=== PATIENT | female | born 1985 | race Caucasian/White ===

== ENCOUNTER 2016-10-14 18:01 | Emergency (ER) | payer MEDICAID ==
[~2016-10-14] VITALS: Ht 167.6 cm; Wt 64.9 kg
[2016-10-14 19:49] VITALS: BP 111/75
== END 2016-10-14 19:49 | disposition home or self-care (01) ==
LOC: ED 18:01
DX: S61.215A Laceration without foreign body of left ring finger without damage to nail, initial encounter (principal); W26.0XXA Contact with knife, initial encounter; Y93.89 Activity, other specified; Y92.89 Other specified places as the place of occurrence of the external cause; Y99.8 Other external cause status
CPT/HCPCS: 90715

== ENCOUNTER 2017-04-04 17:24 | Emergency (ER) | payer MEDICAID ==
[~2017-04-04] VITALS: Ht 160 cm; Wt 62.6 kg
[2017-04-04 17:57] VITALS: Ht 160 cm; Wt 62.6 kg
[2017-04-04 21:02] VITALS: BP 130/67
== END 2017-04-04 19:50 | disposition home or self-care (01) ==
LOC: ED 17:24
DX: J06.9 Acute upper respiratory infection, unspecified (principal); J01.90 Acute sinusitis, unspecified

== ENCOUNTER 2018-01-30 07:24 | Emergency (ER) | payer MEDICAID ==
[~2018-01-30] VITALS: Ht 154.9 cm; Wt 57.6 kg
[2018-01-30 07:29] VITALS: Ht 154.9 cm; Wt 57.6 kg
[2018-01-30 09:04] VITALS: BP 109/75
== END 2018-01-30 09:04 | disposition home or self-care (01) ==
LOC: ED 07:24
DX: M26.602 Left temporomandibular joint disorder, unspecified (principal); R68.84 Jaw pain; M54.2 Cervicalgia

== ENCOUNTER 2019-02-20 12:16 | Emergency (ER) | payer MEDICAID ==
[~2019-02-20] VITALS: Ht 157.5 cm; Wt 61.2 kg
[2019-02-20 12:28] VITALS: Ht 157.5 cm; Wt 61.2 kg
[2019-02-20 13:38] LABS: BASOPHIL % 0.8 % (0-2); PLATELET COUNT 298 x10^3mcL (130-400); RED CELL DISTRIBUTION WIDTH 14.1 % (11.5-14.5)
[2019-02-20 14:07] LABS: ALBUMIN 3.6 g/dL (3.4-5.0); ALKALINE PHOSPHATASE 50 U/L (46-116); ALT/SGPT 29 U/L (14-59); AST/SGOT 26 U/L (15-37); BILIRUBIN TOTAL 0.67 mg/dL (0.20-1.00); CALCIUM 8.5 mg/dL (8.5-10.1); CARBON DIOXIDE 26.7 mmol/L (21-32); CHLORIDE SERUM 104 mmol/L (98-107); CREATININE SERUM 0.8 mg/dL (0.6-1.0); GFR1 > 60 mL/min; GLUCOSE SERUM 94 mg/dL (74-106); POTASSIUM SERUM 4.1 mmol/L (3.5-5.1); SODIUM SERUM 141 mmol/L (136-145); TOTAL PROTEIN, SERUM 7.1 g/dL (6.4-8.2)
[2019-02-20 14:08] LABS: LIPASE 156 IU/L (73-393)
[2019-02-20 16:37] VITALS: BP 115/66
== END 2019-02-20 16:37 | disposition home or self-care (01) ==
LOC: ED 12:16
PROVIDERS: Specialist
DX: N39.0 Urinary tract infection, site not specified (principal)
CPT/HCPCS: 36415